=== PATIENT | female | born 1940 | race Caucasian/White ===

== ENCOUNTER 2017-09-09 11:02 | Emergency (ER) | payer MEDICARE ==
[2017-09-09] MEDS ORDERED: ALBUTEROL SULFATE 2.5 MG/0.5 ML VIAL.NEB IH ONE ×2 (11:38→11:39)
--- NOTE | 2017-09-09 11:38 | ERNOTE ---
Date of Service: 09/09/17 Time Seen by Provider: 09/09/17 11:08 Stated Complaint: COUGH Presenting Symptoms:: cough Source: patient Exam Limitations: no limitations Allergies/Adverse Reactions: Allergies enalapril [Enalapril] Allergy (Verified 09/09/17 11:29) zinc [Zinc] Allergy (Verified 09/09/17 11:29) Home Medications: HOME MEDICATIONS Aspirin [Aspirin Chewable] 81 mg PO DAILY 01/15/13 [Last Taken Unknown] Caltrate 600 2 tab PO DAILY 01/15/13 [Last Taken Unknown] Carvedilol [Coreg] 25 mg PO BID 01/15/13 [Last Taken Unknown] Furosemide [Lasix] 40 mg PO DAILY 01/15/13 [Last Taken Unknown] Insulin Aspart [Novolog] 8 unit SQ TID 01/15/13 [Last Taken Unknown] Insulin Glargine,Hum.rec.anlog [Lantus] 13 unit SQ HS 01/15/13 [Last Taken Unknown] Isosorbide Dinitrate 20 mg PO BID 01/15/13 [Last Taken Unknown] [place]-3 Fatty Acids/Fish Oil [Fish Oil 1,200 mg Softgel] 1 each PO DAILY [Last Taken Unknown] Pravastatin Sodium [Pravachol] 80 mg PO HS 01/15/13 [Last Taken Unknown] Allopurinol [Zyloprim (Allopurinol)] 100 mg PO BID 09/09/17 [Last Taken Unknown] Dabigatran Etexilate Mesylate [Pradaxa] 150 mg PO BID 09/09/17 [Last Taken Unknown] Doxycycline Monohydrate 100 mg PO BID #20 tablet 09/09/17 [Last Taken Unknown] Furosemide 20 mg PO DAILY #20 tablet 09/09/17 [Last Taken Unknown] Losartan Potassium [Cozaar] 25 mg PO DAILY 09/09/17 [Last Taken Unknown] Multivitamin [Multivitamins] 1 each PO DAILY 09/09/17 [Last Taken Unknown] Potassium Chloride [Klor-Con 10] 10 meq PO DAILY #20 tablet.er 09/09/17 [Last Taken Unknown] - History of Present Ilness Narrative: Pt. comes in with c/o cough, chest congestion, nasal congestion, and intermittent fever for three days. Pt. has a hx of heart disease, smoking, and diabetes, but denies any lung disease. Pt. denies any SOB, CP, NVD, swelling, weakness, dizziness/lightheadedness, alleviating factors, or aggravating factors. Pt. denies any prehospital treatment. Review of Systems - Review of Systems Constitutional: Present: no symptoms reported. Absent: recent illness, fever, chills, weakness, fatigue, malaise EYE: Present: no symptoms reported ENT: Present: nose congestion, nasal drainage, sore throat Respiratory: Present: cough. Absent: shortness of breath, orthopnea, wheezing Cardiology: Present: no symptoms reported Gastrointestinal/Abdominal: Present: no symptoms reported. Absent: nausea, vomiting, diarrhea, abdominal pain Genitourinary: Present: no symptoms reported Musculoskeletal: Present: no symptoms reported. Absent: back pain, joint pain Skin: Present: no symptoms reported. Absent: rash, change in hair/nails Neurological: Present: no symptoms reported. Absent: headache, dizziness/light- headedness, numbness, tingling All Other Systems: All systems neg except as marked - Patient's Past Medical History Patient History - Medical: No pertinent hx Physical Exam - Physical Exam General Appearance: Present: wd/wn, alert, no apparent distress Head Exam: Present: normal inspection, no evidence of injury Eye Exam: Normal inspection: bilateral, PERRL: bilateral, EOMI: bilateral Ears, Nose, Throat: Present: nasal congestion, sinus pain/drainage, pharyngeal erythema Neck: Present: nontender, supple, full range of motion, lymphadenopathy (R) - submandibular, lymphadenopathy (L) - submandibular Respiratory: Present: no respiratory distress, no accessory muscle use, decreased breath sounds - bases, wheezing - exp uppers. Absent: rales, rhonchi Cardiovascular/Chest: Present: regular rate, rhythm, no murmur, normal peripheral pulses Gastrointestinal/Abdominal: Present: normal bowel sounds, nontender, nondistended, soft, no organomegaly, tenderness Back Exam: Present: normal inspection Extremity Exam: Present: normal inspection, non-tender, normal range of motion, no edema Neurological Exam: Present: alert, oriented, normal mood/affect, no motor/ sensory deficits, electrical repairer II-XII nml as tested, normal cerebellar test Skin Exam: Present: warm/dry, pallor ED Progress - Date and Time Seen: Date and Time: 09/09/17 13:[address] Anna about starting pt. on doxy and lasix and he agrees with POC and asks to start pt. on 10 mq of potassium and have her follow up for labs and appointment with him - Results and Orders Patient's Lab Results:: I have reviewed the patient's lab results. Results and Orders: Abnormal Lab Results 09/09/17 09/09/17 Range/Units 12:20 12:20 RBC 4.06 L (4.2-5.4) M/mm3 Hgb 11.7 L (12.5-16.0) gm/dL Hct 36.1 L (37.0-47.0) % RDW 14.4 H (11.5-14.0) % MPV 10.4 H (6.0-9.5) fl Lymphocytes % 12.9 L (20-51) % Monocytes % 20.0 H (0.0-9) % Lymphocytes # 0.9 L (1.5-3.5) k/mm3 Monocytes # 1.4 H (0.0-1.0) k/mm3 BUN 26 H (3-23) mg/dL Est GFR (Non-Af Amer) 41 L (60-130) mL/min Random Glucose 50 L (70-110) mg/dL B-Natriuretic Peptide 1746 H (5-550) pg/mL - Vital Signs Patient's Vital Signs:: I have reviewed the patient's vital signs. - EKG EKG: other - v paced EKG read: Reviewed by me EKG Comments: CXR with interstitial edema and cardiomegaly. - X-Ray X-Ray #1 X-Ray: chest Interpretation: Reviewed by me X-ray Comments: interstitial edema - Progress/Reassessment Progress:: Improved Departure Clinical Impression: Interstitial pneumonia CHF (congestive heart failure) Qualifiers: Congestive heart failure type: unspecified congestive heart failure type Congestive heart failure chronicity: acute on chronic Qualified Code(s): I50.9 - Heart failure, unspecified Upper respiratory infection Qualifiers: URI type: acute nasopharyngitis (common cold) Qualified Code(s): J00 - Acute nasopharyngitis [common cold] - Departure Disposition: Home self-care Condition: Good Instructions: Community-Acquired Pneumonia, Adult, [id number], Heart Failure , [id number] Additional Instructions: Please follow up with Dr Anna as scheduled and get labs before you go to his office at 09/15 At 1045 Referrals: Alonso Anna MD [Primary Care Provider] - Prescriptions: Doxycycline Monohydrate 100 mg PO BID #20 tablet Furosemide 20 mg PO DAILY #20 tablet Potassium Chloride [Klor-Con 10] 10 meq PO DAILY #20 tablet.er
[2017-09-09 12:29] LABS: Hematocrit 36.1 % (37.0-47.0); Hemoglobin 11.7 gm/dL (12.5-16.0); Mean Cell Volume 88.9 fl (78-100); Mean Corpuscular Hemoglobin 28.8 pg (27-31); Mean Corpuscular Hgb Conc 32.4 g/dl (32-36); Mean Platelet Volume 10.4 fl (6.0-9.5); Neutrophil # 4.4 K/mm3 (1.3-6.0); Neutrophil % 64.6 % (42-75.0); Platelet Count 201 K/mm3 (150-450); Red Blood Count 4.06 M/mm3 (4.2-5.4); Red Cell Distribution Width 14.4 % (11.5-14.0); White Blood Count 6.7 K/mm3 (4.0-10.5)
[2017-09-09 12:48] LABS: Albumin * 3.4 gm/dl (3.4-5.0); Anion Gap 12.2 mmol/L (6.8-13.8); BUN/Creatinine Ratio 19.7 (9.0-21.6); Bilirubin, Total 0.5 mg/dL (0.0-1.1); Ca. Corrected For Albumin 9.3 mg/dL (8.4-10.2); Calcium * 9.1 mg/dL (7.9-10.9); Carbon Dioxide 27.5 mmol/L (24-32.6); Potassium 3.7 mmol/L (3.4-4.6)
[2017-09-09 12:59] VITALS: BP 109/46
[2017-09-09] MEDS ORDERED: FUROSEMIDE 40 MG TABLET PO ONE (12:59)
[2017-09-09] MEDS ORDERED: DOXYCYCLINE HYCLATE 100 MG TABLET PO ONE (13:00)
[2017-09-09] MEDS ORDERED: DOXYCYCLINE HYCLATE 100 MG TABLET ONE (13:04)
[2017-09-09] MEDS ORDERED: FUROSEMIDE 40 MG TABLET ONE (13:04)
== END 2017-09-09 13:26 | disposition home or self-care (01) ==
LOC: ER 11:02
DX: J84.9 Interstitial pulmonary disease, unspecified (principal); I50.9 Heart failure, unspecified; J00 Acute nasopharyngitis [common cold]

== ENCOUNTER 2017-09-11 08:05 | Inpatient (IN) | payer MEDICARE ==
[2017-09-11] MEDS ORDERED: ALBUTEROL SULFATE/IPRATROPIUM 3 ML NEBU IH ONE ×2 (08:49→09:19)
--- NOTE | 2017-09-11 08:56 | ERNOTE ---
Time Seen by Provider: 09/11/17 08:43 Stated Complaint: PNEUMONIA, CHF Presenting Symptoms:: cough Source: patient, family Exam Limitations: no limitations Immunizations: IMMUNIZATION HX Immunizations Up to Date Yes History of Influenza Vaccine Yes Hx Pneumococcal Vaccination Yes Allergies/Adverse Reactions: Allergies enalapril [Enalapril] Allergy (Verified 09/11/17 08:15) zinc [Zinc] Allergy (Verified 09/11/17 08:15) Home Medications: HOME MEDICATIONS Aspirin [Aspirin Chewable] 81 mg PO DAILY 01/15/13 [Last Taken Unknown] Caltrate 600 2 tab PO DAILY 01/15/13 [Last Taken Unknown] Carvedilol [Coreg] 25 mg PO BID 01/15/13 [Last Taken Unknown] Furosemide [Lasix] 40 mg PO DAILY 01/15/13 [Last Taken Unknown] Insulin Aspart [Novolog] 8 unit SQ TID 01/15/13 [Last Taken Unknown] Insulin Glargine,Hum.rec.anlog [Lantus] 13 unit SQ HS 01/15/13 [Last Taken Unknown] Isosorbide Dinitrate 20 mg PO BID 01/15/13 [Last Taken Unknown] [place]-3 Fatty Acids/Fish Oil [Fish Oil 1,200 mg Softgel] 1 each PO DAILY [Last Taken Unknown] Pravastatin Sodium [Pravachol] 80 mg PO HS 01/15/13 [Last Taken Unknown] Allopurinol [Zyloprim (Allopurinol)] 100 mg PO BID 09/09/17 [Last Taken Unknown] Dabigatran Etexilate Mesylate [Pradaxa] 150 mg PO BID 09/09/17 [Last Taken Unknown] Doxycycline Monohydrate 100 mg PO BID #20 tablet 09/09/17 [Last Taken Unknown] Furosemide 20 mg PO DAILY #20 tablet 09/09/17 [Last Taken Unknown] Losartan Potassium [Cozaar] 25 mg PO DAILY 09/09/17 [Last Taken Unknown] Multivitamin [Multivitamins] 1 each PO DAILY 09/09/17 [Last Taken Unknown] Potassium Chloride [Klor-Con 10] 10 meq PO DAILY #20 tablet.er 09/09/17 [Last Taken Unknown] - History of Present Ilness Narrative: Patient seen here 2 days ago for cough and congestion and was sent home with antibiotics and increased diuretics and has failed to improve significantly. Patient family both state that her cough is still fairly severe and she is having difficulty laying flat without worsening respirations. Timing: intermittent Severity: moderate Frequency/Possible Cause: Reports: occasional episodes Modifying Factors - Improves: Reports: nothing Modifying Factors - Worsens: Reports: activity Associated Symptoms: Reports: cough Prior Treatment: Reports: recently seen, treated by physician, currently on antibiotics Review of Systems - Review of Systems Constitutional: Present: See HPI EYE: Present: no symptoms reported ENT: Present: no symptoms reported Respiratory: Present: shortness of breath, cough Cardiology: Present: no symptoms reported Gastrointestinal/Abdominal: Present: no symptoms reported Genitourinary: Present: no symptoms reported Musculoskeletal: Present: no symptoms reported Skin: Present: no symptoms reported Neurological: Present: no symptoms reported Endocrine: Present: no symptoms reported Hematologic/Lymphatic: Present: no symptoms reported Psych: Present: no symptoms reported - Patient's Past Medical History Patient History - Medical: No pertinent hx, Diabetes Type 2, Other - gout Patient History - Cardiac/Respiratory: CHF, Hypertension, Hyperlipidemia, TIA Patient History - Cancer: Breast, Cervical, Skin Patient History - Surgical Procedures: Back Surgery, Cataracts, Hysterectomy, Pacemaker Patient History - Other: None - Social History Living Situations: home Abuse History: No History of abuse Psych History: No pertinent hx - Immunizations Immunizations Up to Date: Yes Hx Pneumococcal Vaccination: Yes History of Influenza Vaccine: Yes Physical Exam - Physical Exam General Appearance: Present: wd/wn, alert, moderate distress Head Exam: Present: normal inspection Eye Exam: Normal inspection: bilateral, PERRL: bilateral Ears, Nose, Throat: Present: normal ENT inspection, H, normal pharynx Neck: Present: normal inspection, nontender Respiratory: Present: no accessory muscle use, chest nontender, respiratory distress - moderate, other - course breath sounds Cardiovascular/Chest: Present: regular rate, rhythm, no murmur, normal peripheral pulses Gastrointestinal/Abdominal: Present: normal bowel sounds, nontender, nondistended, soft, no organomegaly Rectal Exam: Present: deferred Back Exam: Present: normal inspection, normal range of motion Extremity Exam: Present: normal inspection, non-tender, no edema, normal range of motion Neurological Exam: Present: alert, oriented, normal mood/affect Skin Exam: Present: normal color, warm/dry Lymphatic Exam: Present: no adenopathy ED Progress - Results and Orders Patient's Lab Results:: I have reviewed the patient's lab results. - Vital Signs Patient's Vital Signs:: I have reviewed the patient's vital signs. Vital Signs: Vital Signs 09/11/17 08:10 Temperature 37.2 C Pulse Rate 74 Respiratory 14 Rate Blood Pressure 141/56 O2 Sat by Pulse 90 Oximetry - EKG EKG: other EKG read: Interp. by me - paced rhythm - X-Ray X-Ray #1 X-Ray: chest Interpretation: Reviewed by me - Progress/Reassessment Chief Complaint: Upper Respiratory Symptoms Plan - Plan Plan: Patient has failed outpatient therapy and will be admitted to the hospital for IV Lasix. Departure Clinical Impression: CHF (congestive heart failure) Qualifiers: Congestive heart failure type: unspecified congestive heart failure type Congestive heart failure chronicity: acute on chronic Qualified Code(s): I50.9 - Heart failure, unspecified - Departure Disposition: [facility] Condition: Fair
[2017-09-11] MEDS ORDERED: HYDROcodone/CHLORPHEN P-STIREX 5 ML UDC PO ONE (09:00)
[2017-09-11 09:13] LABS: Hemoglobin 11.8 gm/dL (12.5-16.0); Mean Cell Volume 89.2 fl (78-100); Mean Corpuscular Hemoglobin 28.4 pg (27-31); Mean Corpuscular Hgb Conc 31.9 g/dl (32-36); Mean Platelet Volume 10.1 fl (6.0-9.5); Neutrophil # 7.8 K/mm3 (1.3-6.0); Neutrophil % 77.1 % (42-75.0); Platelet Count 169 K/mm3 (150-450); Red Blood Count 4.15 M/mm3 (4.2-5.4); Red Cell Distribution Width 14.4 % (11.5-14.0); White Blood Count 10.1 K/mm3 (4.0-10.5)
[2017-09-11 09:32] LABS: Troponin I 0.057 ng/ml (0.00-0.10)
[2017-09-11 09:34] LABS: Anion Gap 13.7 mmol/L (6.8-13.8); BUN/Creatinine Ratio 26.9 (9.0-21.6); Calcium * 8.4 mg/dL (7.9-10.9); Carbon Dioxide 26.5 mmol/L (24-32.6); Estimated Creat Clear 30.4; Potassium 4.2 mmol/L (3.4-4.6)
[2017-09-11] MEDS ORDERED: FUROSEMIDE 10 MG/ML VIAL IV ONE ×2 (10:12→11:00)
--- NOTE | 2017-09-11 11:16 | HP ---
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 Five days [employer], she started having upper respiratory signs and symptoms . She was having nasal congestion, cough productive of yellowish phlegm, mixed with specks of blood and epistaxis. She also started having SOB and some wheezing. She went to our ER were CXR showed pulmonary congestion and was given lasix and doxycycline for acute nasopharyngitis. Her SOB and cough did not improve and she became more orthopneic and so she went back to the ER . She was then admitted for Acute exacerbation of congestive heart failure. Her CXR did not show pneumonia except for cardiomegaly and pulmonary congestion. - Patient's Past Medical History Patient History - Medical: No pertinent hx, Diabetes Type 2, Other - gout Patient History - Cardiac/Respiratory: CHF, Hypertension, Hyperlipidemia, TIA Patient History - Cancer: Breast, Cervical, Skin Patient History - Surgical Procedures: Back Surgery, Cataracts, Hysterectomy, Pacemaker Patient History - Other: None - Family History Mother Family History - Medical: Diabetes Type 1 Family History - Cancer: Breast Father Family History - Cancer: Prostate - Social History Living Situations: home Abuse History: No History of abuse Psych History: No pertinent hx - Immunizations Immunizations Up to Date: Yes Hx Pneumococcal Vaccination: Yes History of Influenza Vaccine: Yes Review Of Systems (GEN) - Review of Systems Generalized/Overall Review: Present: Weakness Respiratory: Present: Cough, Shortness of Breath, Orthopnea, Wheezing Cardiac: Absent: Chest Pain, Edema, Palpitations Abdominal: Absent: Nausea, Vomiting Genitourinary: Absent: Urgency, Frequency Musculoskeletal: Present: Joint Pain Immunizations: IMMUNIZATION HX Immunizations Up to Date Yes History of Influenza Vaccine Yes Hx Pneumococcal Vaccination Yes Allergies/Adverse Reactions: Allergies Allergy/AdvReac Type Severity Reaction Status Date / Time enalapril [Enalapril] Allergy Verified 09/11/17 08:15 zinc [Zinc] Allergy Verified 09/11/17 08:15 Home Medications: HOME MEDICATIONS Aspirin [Aspirin Chewable] 81 mg PO DAILY 01/15/13 [Last Taken 09/10/17] Calcium Carbonate/Vitamin D3 [Caltrate-600 with Vit D Tab] 2 each PO DAILY 01/15 [Last Taken 09/10/17] Carvedilol [Coreg] 25 mg PO BID 01/15/13 [Last Taken 09/10/17] Furosemide [Lasix] 40 mg PO DAILY 01/15/13 [Last Taken 09/10/17] Insulin Glargine,Hum.rec.anlog [Lantus] 68 unit SQ HS 01/15/13 [Last Taken Unknown] Isosorbide Dinitrate 20 mg PO BID 01/15/13 [Last Taken 09/10/17] [place]-3 Fatty Acids/Fish Oil [Fish Oil 1,200 mg Softgel] 1 each PO DAILY [Last Taken 09/10/17] Pravastatin Sodium [Pravachol] 80 mg PO HS 01/15/13 [Last Taken 09/10/17] Allopurinol [Zyloprim (Allopurinol)] 100 mg PO BID 09/09/17 [Last Taken 09/10/17 ] Dabigatran Etexilate Mesylate [Pradaxa] 150 mg PO BID 09/09/17 [Last Taken 09/10] Doxycycline Monohydrate 100 mg PO BID #20 tablet 09/09/17 [Last Taken 09/10/17] Furosemide 20 mg PO DAILY #20 tablet 09/09/17 [Last Taken 09/10/17] Losartan Potassium [Cozaar] 25 mg PO DAILY 09/09/17 [Last Taken 09/10/17] Multivitamin [Multivitamins] 1 each PO DAILY 09/09/17 [Last Taken 09/10/17] Potassium Chloride [Klor-Con 10] 10 meq PO DAILY #20 tablet.er 09/09/17 [Last Taken Unknown] Insulin Lispro [Humalog] 20 units SQ AC 09/11/17 [Last Taken 09/10/17] Exam - Exam Vital Signs: Vital Signs - Last Taken Temp 37.2 C 09/11/17 08:10 Pulse 84 09/11/17 10:22 Resp 20 09/11/17 10:22 BP 125/61 09/11/17 10:22 Pulse Ox 94 09/11/17 10:22 Constitutional: Present: Oriented x3, Cooperative, Moderate distress ENT Exam: Present: hearing grossly normal Eye Exam: bilateral eye: normal inspection, PERRL, EOMI Neck: Present: supple Respiratory: Present: decreased breath sounds, rales, wheezing Cardiovascular/Chest: Present: regular rate, rhythm, no JVD, no murmur Abdomen: Present: Normal bowel sounds, soft, nontender, nondistended Extremity: Present: no calf tenderness, pedal edema Diagnostic Studies: Laboratory Results WBC 10.1 K/mm3 (4.0-10.5) D 09/11/17 09:06 RBC 4.15 M/mm3 (4.2-5.4) L 09/11/17 09:06 Hgb 11.8 gm/dL (12.5-16.0) L 09/11/17 09:06 Hct 37.0 % (37.0-47.0) 09/11/17 09:06 MCV 89.2 fl (78-100) 09/11/17 09:06 MCH 28.4 pg (27-31) 09/11/17 09:06 MCHC 31.9 g/dl (32-36) L 09/11/17 09:06 RDW 14.4 % (11.5-14.0) H 09/11/17 09:06 Plt Count 169 K/mm3 (150-450) 09/11/17 09:06 MPV 10.1 fl (6.0-9.5) H 09/11/17 09:06 Immature Gran % (Auto) 0.60 % (0.001-0.429) H 09/11/17 09:06 Immature Gran # (Auto) 0.06 K/mm3 (0.000-0.0310) H 09/11/17 09:06 Neutrophils % 77.1 % (42-75.0) H 09/11/17 09:06 Lymphocytes % 7.7 % (20-51) L 09/11/17 09:06 Monocytes % 14.0 % (0.0-9) H 09/11/17 09:06 Eosinophils % 0.1 % (0.0-3.0) 09/11/17 09:06 Basophils % 0.5 % (0.0-1.0) 09/11/17 09:06 Nucleated RBC % 0.0 k/mm3 (0-1) 09/11/17 09:06 Neutrophils # 7.8 K/mm3 (1.3-6.0) H 09/11/17 09:06 Lymphocytes # 0.8 k/mm3 (1.5-3.5) L 09/11/17 09:06 Monocytes # 1.4 k/mm3 (0.0-1.0) H 09/11/17 09:06 Eosinophils # 0.0 k/mm3 (0.0-0.7) 09/11/17 09:06 Absolute Basophils 0.1 k/mm3 (0.0-0.1) 09/11/17 09:06 pCO2 35.4 mmHg (32.0-45.0) 09/11/17 09:06 pO2 80.3 mmHg (83.0-108.0) L 09/11/17 09:06 HCO3 21.7 mmol/L (21.0-28.0) 09/11/17 09:06 Total CO2 22.8 mmol/L (19.0-24.0) 09/11/17 09:06 Base Excess -2.5 mmol/L (-2.0-3.0) L 09/11/17 09:06 ABG pH 7.41 (7.35-7.45) 09/11/17 09:06 ABG O2 Sat (Measured) 96.0 % (94.0-98.0) 09/11/17 09:06 Sodium 133 mmol/L (132-142) 09/11/17 09:06 Plasma Sodium 134 mmol/L (130-142) 09/11/17 09:06 Potassium 4.2 mmol/L (3.4-4.6) 09/11/17 09:06 Chloride 97 mmol/L (97-106) 09/11/17 09:06 Carbon Dioxide 26.5 mmol/L (24-32.6) 09/11/17 09:06 Anion Gap 13.7 mmol/L (6.8-13.8) 09/11/17 09:06 BUN 39 mg/dL (3-23) H 09/11/17 09:06 Creatinine 1.45 mg/dL (0.4-1.4) H 09/11/17 09:06 Est GFR (Non-Af Amer) 37 mL/min (60-130) L 09/11/17 09:06 BUN/Creatinine Ratio 26.9 (9.0-21.6) H 09/11/17 09:06 Random Glucose 175 mg/dL (70-110) H D 09/11/17 09:06 Calcium 8.4 mg/dL (7.9-10.9) 09/11/17 09:06 Magnesium 2.0 mg/dL (1.2-2.8) 09/11/17 09:06 Troponin I 0.057 ng/ml (0.00-0.10) 09/11/17 09:06 B-Natriuretic Peptide 1960 pg/mL (5-550) H 09/11/17 09:06 Assessment/Plan - Assessment/Plan (1) CHF (congestive heart failure) Assessment: acute on chronic, likely combined systolic and diastolic. will get an Echo. Continue with IV diuresis. Problem: Chronic Qualifiers: Congestive heart failure type: unspecified congestive heart failure type Congestive heart failure chronicity: acute on chronic Qualified Code(s): I50.9 - Heart failure, unspecified (2) Acute bronchitis Assessment: r/o beginning Pneumonia. will start her on IV antibiotics and breathing treatments and IV solumedrol. She does admit that in the past she used to get acute bronchitis twice a year. Problem: Acute (3) Hypertension Assessment: continue with home medications Problem: Chronic Qualifiers: Hypertension type: essential hypertension Qualified Code(s): I10 - Essential (primary) hypertension (4) HLD (hyperlipidemia) Problem: Chronic (5) CAD (coronary artery disease) Problem: Chronic (6) Pacemaker Problem: Chronic
[2017-09-11] MEDS ORDERED: AZITHROMYCIN 250 MG TABLET PO ONE (12:23)
[2017-09-11] MEDS ORDERED: ALBUTEROL SULFATE 2.5 MG/0.5 ML VIAL.NEB IH PRN (12:51)
[2017-09-11] MEDS: HYDROcodone/CHLORPHEN P-STIREX 5 ML UDC PO PRN (13:48)
[2017-09-11] MEDS: WATER IV SCH ×4 (13:53→19:12)
[2017-09-11] MEDS: HYDROCORTISONE SOD SUCCINATE IV SCH ×4 (13:53→19:12)
[2017-09-11] MEDS: DEXTROSE 5% IV SCH ×4 (13:53→19:12)
[2017-09-11] MEDS: POTASSIUM CHLORIDE 10 MEQ TABLET.SA PO SCH ×2 (14:09→17:21)
[2017-09-11] MEDS ORDERED: ALBUTEROL SULFATE/IPRATROPIUM 3 ML NEBU IH PRN (19:49)
[2017-09-11] MEDS: ROSUVASTATIN CALCIUM 10 MG TABLET PO SCH (21:22)
[2017-09-11] MEDS: DABIGATRAN ETEXILATE MESYLATE 150 MG CAPSULE PO SCH (21:23)
[2017-09-11] MEDS: ISOSORBIDE DINITRATE 10 MG TABLET PO SCH (21:24)
[2017-09-11] MEDS: ALLOPURINOL 100 MG TABLET PO SCH (21:25)
[2017-09-11] MEDS: FUROSEMIDE 10 MG/ML VIAL IV SCH (21:26)
[2017-09-11] MEDS: CARVEDILOL 25 MG TABLET PO SCH (21:26)
[2017-09-12] MEDS: HYDROCORTISONE SOD SUCCINATE IV SCH ×4 (00:42→06:36)
[2017-09-12] MEDS: WATER IV SCH ×4 (00:42→06:36)
[2017-09-12] MEDS: DEXTROSE 5% IV SCH ×4 (00:42→06:36)
[2017-09-12] MEDS: HYDROcodone/CHLORPHEN P-STIREX 5 ML UDC PO PRN ×2 (01:04→23:34)
[2017-09-12 05:44] LABS: Hematocrit 36.7 % (37.0-47.0); Hemoglobin 11.7 gm/dL (12.5-16.0); Mean Cell Volume 89.5 fl (78-100); Mean Corpuscular Hemoglobin 28.5 pg (27-31); Mean Corpuscular Hgb Conc 31.9 g/dl (32-36); Mean Platelet Volume 10.4 fl (6.0-9.5); Neutrophil # 5.8 K/mm3 (1.3-6.0); Neutrophil % 75.7 % (42-75.0); Platelet Count 173 K/mm3 (150-450); Red Cell Distribution Width 14.3 % (11.5-14.0); White Blood Count 7.6 K/mm3 (4.0-10.5)
[2017-09-12 06:08] LABS: BUN/Creatinine Ratio 30.5 (9.0-21.6); Calcium * 8.1 mg/dL (7.9-10.9); Carbon Dioxide 26.9 mmol/L (24-32.6); Estimated Creat Clear 33.7; Potassium 3.9 mmol/L (3.4-4.6)
[2017-09-12] MEDS: LOSARTAN POTASSIUM 50 MG TABLET PO SCH (08:09)
[2017-09-12] MEDS: POTASSIUM CHLORIDE 10 MEQ TABLET.SA PO SCH ×2 (08:09→16:39)
[2017-09-12] MEDS: ASPIRIN 81 MG TAB.CHEW PO SCH (08:09)
[2017-09-12] MEDS: CARVEDILOL 25 MG TABLET PO SCH ×2 (08:09→20:18)
[2017-09-12] MEDS: DABIGATRAN ETEXILATE MESYLATE 150 MG CAPSULE PO SCH ×2 (08:10→20:16)
[2017-09-12] MEDS: ISOSORBIDE DINITRATE 10 MG TABLET PO SCH ×2 (08:10→20:20)
[2017-09-12] MEDS: CALCIUM CARBONATE 500 MG TAB.CHEW PO SCH (08:11)
[2017-09-12] MEDS: ALLOPURINOL 100 MG TABLET PO SCH ×2 (08:11→20:24)
[2017-09-12] MEDS: FUROSEMIDE 10 MG/ML VIAL IV SCH ×2 (08:11→20:21)
[2017-09-12] MEDS ORDERED: predniSONE 20 MG TABLET PO SCH (09:00)
[2017-09-12] MEDS ORDERED: ALBUTEROL SULFATE/IPRATROPIUM 3 ML NEBU IH SCH (11:15)
[2017-09-12] MEDS: METHYLPREDNISOLONE SOD SUCC 60 MG in WATER FOR INJ.,BACTERIOSTATIC 0 ML IV SCH ×3 (11:55→23:29)
[2017-09-12] MEDS: INSULIN LISPRO 100 UNITS/ML VIAL SC SCH ×3 (11:55→16:40)
[2017-09-12] MEDS: ALBUTEROL SULFATE 2.5 MG/0.5 ML VIAL.NEB IH PRN ×2 (13:28→23:33)
[2017-09-12] MEDS: AZITHROMYCIN 250 MG TABLET PO SCH (14:20)
[2017-09-12] MEDS: ALBUTEROL SULFATE/IPRATROPIUM 3 ML NEBU IH SCH ×2 (15:59→19:48)
--- NOTE | 2017-09-12 18:52 | PN ---
Subjective - Date and Time Seen Date: 09/12/17 Time: 10:10 Subjective Narrative: Patient seen and examined at bedside. No acute issues overnight. Patient states that she continues to feel unwell. She admits that her cough is quite bothersome and she doesn't seem to be getting much sleep. Objective - Review of Systems Generalized/Overall Review: Reports: Weakness, Fatigue EENTM: Reports: No Symptoms Reported Respiratory: Reports: Cough, Shortness of Breath, Wheezing Cardiac: Reports: No Symptoms Reported Abdominal: Reports: No Symptoms Reported Genitourinary Symptoms: Reports: No Symptoms Reported Musculoskeletal Complaints: Reports: No Symptoms Reported Neurological: Reports: No Symptoms Reported Skin: Reports: No Symptoms Reported Endocrine: Reports: No Symptoms Reported Misc: All systems neg except as marked - Vitals Vitals: Last Vital Signs Temp 36.6 C 09/12/17 18:34 Pulse 79 09/12/17 18:34 Resp 18 09/12/17 18:34 BP 123/60 09/12/17 18:34 Pulse Ox 97 09/12/17 18:34 - Exam Constitutional: Present: Alert, Oriented x3, Cooperative, Well developed, Well nourished ENT Exam: Present: moist mucous membranes Respiratory: Present: other - Profound diffuse rhonchi bilaterally Cardiovascular/Chest: Present: no edema, other - Difficult to thoroughly assess heart sounds secondary to prominent lung sounds Abdomen: Present: soft, nontender, nondistended Extremity: Present: normal inspection Skin Exam: Present: warm/dry Neurologic: Present: alert, normal mood/affect, oriented x 3 Appearance: Present: appropriate appearance, appropriate insight, neat, no memory impairment Eye contact: Present: cooperative, good eye contact, normal speech Thoughts: Present: normal thought pattern, no apparent hallucination Assessment/Plan Plan Narrative: Continue IV antibiotics with Rocephin and azithromycin. Start IV steroids. Monitor for clinical improvement. If no improvement over the next 24-48 hours, consider antibiotic adjustment. - Problems/Diagnosis (1) Pneumonitis Problem: Acute (2) Pneumonia Problem: Acute Qualifiers: Pneumonia type: due to unspecified organism Laterality: bilateral (3) Pulmonary hypertension Problem: Acute
[2017-09-12] MEDS: ROSUVASTATIN CALCIUM 10 MG TABLET PO SCH (20:20)
[2017-09-12] MEDS ORDERED: INSULIN GLARGINE,HUM.REC.ANLOG 100 UNITS/ML VIAL SC SCH (21:00)
[2017-09-13] MEDS: ALBUTEROL SULFATE 2.5 MG/0.5 ML VIAL.NEB IH PRN ×2 (04:37→22:19)
[2017-09-13] MEDS: METHYLPREDNISOLONE SOD SUCC 60 MG in WATER FOR INJ.,BACTERIOSTATIC 0 ML IV SCH ×4 (05:01→23:29)
[2017-09-13 06:05] LABS: Hematocrit 35.9 % (37.0-47.0); Hemoglobin 11.5 gm/dL (12.5-16.0); Mean Corpuscular Hemoglobin 28.2 pg (27-31); Mean Platelet Volume 10.7 fl (6.0-9.5); Neutrophil % 88.3 % (42-75.0); Platelet Count 202 K/mm3 (150-450); Red Blood Count 4.08 M/mm3 (4.2-5.4); White Blood Count 12.5 K/mm3 (4.0-10.5)
[2017-09-13] MEDS: ALBUTEROL SULFATE/IPRATROPIUM 3 ML NEBU IH SCH ×4 (06:13→18:10)
[2017-09-13 06:25] LABS: Anion Gap 16.4 mmol/L (6.8-13.8); BUN/Creatinine Ratio 37.2 (9.0-21.6); Carbon Dioxide 25.8 mmol/L (24-32.6); Estimated Creat Clear 32.2; Potassium 4.2 mmol/L (3.4-4.6)
[2017-09-13] MEDS: INSULIN LISPRO 100 UNITS/ML VIAL SC SCH ×6 (06:51→16:48)
[2017-09-13] MEDS: CARVEDILOL 25 MG TABLET PO SCH ×2 (08:19→20:13)
[2017-09-13] MEDS: ASPIRIN 81 MG TAB.CHEW PO SCH (08:19)
[2017-09-13] MEDS: POTASSIUM CHLORIDE 10 MEQ TABLET.SA PO SCH ×2 (08:20→16:49)
[2017-09-13] MEDS: ISOSORBIDE DINITRATE 10 MG TABLET PO SCH ×2 (08:20→20:15)
[2017-09-13] MEDS: FUROSEMIDE 10 MG/ML VIAL IV SCH ×2 (08:20→20:19)
[2017-09-13] MEDS: LOSARTAN POTASSIUM 50 MG TABLET PO SCH (08:20)
[2017-09-13] MEDS: DABIGATRAN ETEXILATE MESYLATE 150 MG CAPSULE PO SCH ×2 (08:20→20:14)
[2017-09-13] MEDS: ALLOPURINOL 100 MG TABLET PO SCH ×2 (08:21→20:16)
[2017-09-13] MEDS: CALCIUM CARBONATE 500 MG TAB.CHEW PO SCH (08:21)
[2017-09-13] MEDS: AZITHROMYCIN 250 MG TABLET PO SCH (14:02)
[2017-09-13] MEDS: ROSUVASTATIN CALCIUM 10 MG TABLET PO SCH (20:13)
--- NOTE | 2017-09-13 20:15 | PN ---
Subjective - Date and Time Seen Date: 09/13/17 Time: 08:10 Subjective Narrative: Patient seen and examined at bedside. No acute issues overnight. Patient states that she continues to feel unwell but admits that maybe she is a bit better than yesterday. Objective - Review of Systems Generalized/Overall Review: Reports: Weakness, Fatigue EENTM: Reports: No Symptoms Reported Respiratory: Reports: Cough, Shortness of Breath, Wheezing Cardiac: Reports: No Symptoms Reported Abdominal: Reports: No Symptoms Reported Genitourinary Symptoms: Reports: No Symptoms Reported Musculoskeletal Complaints: Reports: No Symptoms Reported Neurological: Reports: No Symptoms Reported Skin: Reports: No Symptoms Reported Endocrine: Reports: No Symptoms Reported Misc: All systems neg except as marked - Vitals Vitals: Last Vital Signs Temp 36.5 C 09/13/17 18:40 Pulse 85 09/13/17 18:40 Resp 18 09/13/17 18:40 BP 137/52 09/13/17 18:40 Pulse Ox 93 09/13/17 18:40 - Abnormal Lab Findings Abnormal Lab Findings: Abnormal Lab Results 09/13/17 09/13/17 Range/Units 05:35 05:35 WBC 12.5 H D (4.0-10.5) K/mm3 RBC 4.08 L (4.2-5.4) M/mm3 Hgb 11.5 L (12.5-16.0) gm/dL Hct 35.9 L (37.0-47.0) % MPV 10.7 H (6.0-9.5) fl Immature Gran % (Auto) 0.60 H (0.001-0.429) % Immature Gran # (Auto) 0.08 H (0.000-0.0310) K/mm3 Neutrophils % 88.3 H (42-75.0) % Lymphocytes % 7.5 L (20-51) % Neutrophils # 11.0 H (1.3-6.0) K/mm3 Lymphocytes # 0.9 L (1.5-3.5) k/mm3 Anion Gap 16.4 H (6.8-13.8) mmol/L BUN 51 H (3-23) mg/dL Est GFR (Non-Af Amer) 40 L (60-130) mL/min BUN/Creatinine Ratio 37.2 H (9.0-21.6) Random Glucose 364 H D (70-110) mg/dL B-Natriuretic Peptide 2627 H (5-550) pg/mL - Exam Constitutional: Present: Alert, Oriented x3, Cooperative, Well developed, Well nourished, No distress ENT Exam: Present: moist mucous membranes Respiratory: Present: other - Profound diffuse rhonchi bilaterally Cardiovascular/Chest: Present: other - Difficult to thoroughly assess heart sounds secondary to prominent lung sounds Abdomen: Present: soft, nontender, nondistended Extremity: Present: normal inspection Skin Exam: Present: warm/dry Neurologic: Present: alert, normal mood/affect, oriented x 3 Appearance: Present: appropriate appearance, appropriate insight, neat, no memory impairment Eye contact: Present: cooperative, good eye contact Thoughts: Present: normal thought pattern, no apparent hallucination Assessment/Plan Plan Narrative: Continue IV antibiotics and IV steroids and continue to monitor for improvement. If no improvement over the next 24-48 hours, consider antibiotic adjustment and/or Pulmonology consult. - Problems/Diagnosis (1) Pneumonia Problem: Acute Qualifiers: Pneumonia type: due to unspecified organism Laterality: bilateral (2) Pneumonitis Problem: Acute (3) Pulmonary hypertension Problem: Acute
[2017-09-13] MEDS ORDERED: INSULIN GLARGINE,HUM.REC.ANLOG 100 UNITS/ML VIAL SC SCH (20:17)
[2017-09-13] MEDS ORDERED: INSULIN LISPRO 100 UNITS/ML VIAL SC SCH (20:18)
[2017-09-13] MEDS: HYDROcodone/CHLORPHEN P-STIREX 5 ML UDC PO PRN (23:35)
[2017-09-14] MEDS: METHYLPREDNISOLONE SOD SUCC 60 MG in WATER FOR INJ.,BACTERIOSTATIC 0 ML IV SCH ×4 (05:02→22:48)
[2017-09-14 05:56] LABS: Hematocrit 34.7 % (37.0-47.0); Hemoglobin 11.5 gm/dL (12.5-16.0); Mean Cell Volume 86.5 fl (78-100); Mean Corpuscular Hemoglobin 28.7 pg (27-31); Mean Corpuscular Hgb Conc 33.1 g/dl (32-36); Mean Platelet Volume 10.5 fl (6.0-9.5); Platelet Count 233 K/mm3 (150-450); Red Blood Count 4.01 M/mm3 (4.2-5.4); White Blood Count 17.4 K/mm3 (4.0-10.5)
[2017-09-14 06:00] LABS: Total Cells Counted 100
[2017-09-14] MEDS: ALBUTEROL SULFATE/IPRATROPIUM 3 ML NEBU IH SCH ×4 (06:00→18:05)
[2017-09-14 06:05] LABS: BUN/Creatinine Ratio 40.5 (9.0-21.6); Calcium * 8.1 mg/dL (7.9-10.9); Carbon Dioxide 27.2 mmol/L (24-32.6); Estimated Creat Clear 29.8; Potassium 4.2 mmol/L (3.4-4.6)
[2017-09-14 06:07] LABS: Atypical (Reactive) Lymph 2 % (0-2); Band 3 % (0-2.0); Lymphocyte 8 % (20-51); Monocyte 2 % (0-9); Neutrophil 85 % (42-75); Neutrophil # 14.8 K/mm3 (1.3-6.0); Toxic Granulation Trace
[2017-09-14 06:08] LABS: Platelet Estimate Normal (NORMAL)
[2017-09-14] MEDS: INSULIN LISPRO 100 UNITS/ML VIAL SC SCH ×4 (07:28→17:20)
[2017-09-14] MEDS ORDERED: CEFEPIME HCL 1 GM in DEXTROSE 5 % IN WATER 100 ML IV SCH ×2 (08:00)
[2017-09-14] MEDS ORDERED: CEFEPIME HCL 1 GM in NORMAL SALINE 100 ML IV SCH (08:15)
--- NOTE | 2017-09-14 08:19 | PN ---
Subjective - Date and Time Seen Date: 09/14/17 Time: 08:06 Subjective Narrative: Patient valery she is clinically doing better- no longer SOB at rest except for exertion. She is still wheezy and coughing. Objective - Review of Systems Generalized/Overall Review: Reports: Weakness. Denies: Chills, Fever Respiratory: Reports: Cough, Shortness of Breath, Wheezing Cardiac: Denies: Chest Pain, Edema, Palpitations Abdominal: Denies: Nausea, Vomiting Genitourinary Symptoms: Denies: Urgency, Frequency Musculoskeletal Complaints: Reports: Joint Pain - Vitals Vitals: Last Vital Signs Temp 36.8 C 09/14/17 06:34 Pulse 84 09/14/17 06:34 Resp 20 09/14/17 06:34 BP 132/59 09/14/17 06:34 Pulse Ox 96 09/14/17 06:34 - Abnormal Lab Findings Abnormal Lab Findings: Abnormal Lab Results 09/14/17 09/14/17 Range/Units 05:52 05:52 WBC 17.4 H D (4.0-10.5) K/mm3 RBC 4.01 L (4.2-5.4) M/mm3 Hgb 11.5 L (12.5-16.0) gm/dL Hct 34.7 L (37.0-47.0) % MPV 10.5 H (6.0-9.5) fl Neutrophils % (Manual) 85 H (42-75) % Band Neuts % (Manual) 3 H (0-2.0) % Lymphocytes % (Manual) 8 L (20-51) % Neutrophils # (Manual) 14.8 H (1.3-6.0) K/mm3 Lymphocytes # (Manual) 1.4 L (1.5-3.5) k/mm3 BUN 60 H (3-23) mg/dL Creatinine 1.48 H (0.4-1.4) mg/dL Est GFR (Non-Af Amer) 36 L (60-130) mL/min BUN/Creatinine Ratio 40.5 H (9.0-21.6) Random Glucose 374 H (70-110) mg/dL - Exam Constitutional: Present: Alert, Oriented x3, Cooperative Respiratory: Present: decreased breath sounds, crackles, rhonchi, wheezing Cardiovascular/Chest: Present: regular rate, rhythm, no JVD, no murmur Abdomen: Present: Normal bowel sounds, soft, nontender, nondistended Extremity: Present: no pedal edema, no calf tenderness Assessment/Plan - Problems/Diagnosis (1) Leukocytosis Problem: Acute Qualifiers: Leukocytosis type: bandemia Qualified Code(s): D72.825 - Bandemia Narrative: likely due to Steroids but she has bands and will change her antibiotic to Cefepime for pseudomonas coverage as well. Continue with Azithromycin. (2) Pneumonia Problem: Acute Qualifiers: Pneumonia type: due to unspecified organism Laterality: bilateral Narrative: CTS shows opacities in RML/RUL/b/l bases- likely infection. Will change IV Rocephin to Cefepime. WBC up and although it could be due to her Steroids , she does show bands. (3) CHF (congestive heart failure) Problem: Chronic Qualifiers: Congestive heart failure type: unspecified congestive heart failure type Congestive heart failure chronicity: acute on chronic Qualified Code(s): I50.9 - Heart failure, unspecified Narrative: combined systolic amd diastolic. continue with diuretics/Coreg/ARB.. (4) Acute bronchitis Problem: Acute Narrative: with pneumonia. still sound coarse/crackly. will continue with IV solumedrol and breathing treatments, will add mucomyst with nebs . if not better consider bronchosscopy (5) Pulmonary hypertension Problem: Acute Narrative: moderate to severe on ECHO. Classification?- CTA ruled out P.E. likely PAH II vs III. continue with diuresis and pulmonary treatment. (6) Hypertension Problem: Chronic Qualifiers: Hypertension type: essential hypertension Qualified Code(s): I10 - Essential (primary) hypertension (7) HLD (hyperlipidemia) Problem: Chronic (8) CAD (coronary artery disease) Problem: Chronic (9) Pacemaker Problem: Chronic (10) Diabetes mellitus type 2 in nonobese Problem: Acute Narrative: elevated BS due to steroids and infection.
[2017-09-14] MEDS ORDERED: INSULIN GLARGINE,HUM.REC.ANLOG 100 UNITS/ML VIAL SC SCH (08:22)
[2017-09-14] MEDS: CARVEDILOL 25 MG TABLET PO SCH ×2 (08:30→20:46)
[2017-09-14] MEDS: ASPIRIN 81 MG TAB.CHEW PO SCH (08:30)
[2017-09-14] MEDS: POTASSIUM CHLORIDE 10 MEQ TABLET.SA PO SCH ×2 (08:31→16:35)
[2017-09-14] MEDS: FUROSEMIDE 10 MG/ML VIAL IV SCH ×2 (08:31→20:47)
[2017-09-14] MEDS: LOSARTAN POTASSIUM 50 MG TABLET PO SCH (08:31)
[2017-09-14] MEDS: CALCIUM CARBONATE 500 MG TAB.CHEW PO SCH (08:32)
[2017-09-14] MEDS: ALLOPURINOL 100 MG TABLET PO SCH ×2 (08:32→20:47)
[2017-09-14] MEDS: DABIGATRAN ETEXILATE MESYLATE 150 MG CAPSULE PO SCH ×2 (08:32→20:46)
[2017-09-14] MEDS: ISOSORBIDE DINITRATE 10 MG TABLET PO SCH ×2 (08:32→20:46)
[2017-09-14] MEDS: ACETYLCYSTEINE 100 MG/ML VIAL IH SCH ×3 (10:08→18:05)
--- NOTE | 2017-09-14 12:46 | ECHO ---
This report is available in the EMR
[2017-09-14] MEDS: AZITHROMYCIN 250 MG TABLET PO SCH (13:49)
[2017-09-14] MEDS ORDERED: BUDESONIDE 0.5 MG/2 ML VIAL.NEB IH ONE (18:15)
[2017-09-14] MEDS: ROSUVASTATIN CALCIUM 10 MG TABLET PO SCH (20:46)
[2017-09-14] MEDS: HYDROcodone/CHLORPHEN P-STIREX 5 ML UDC PO PRN (22:56)
[2017-09-15] MEDS: METHYLPREDNISOLONE SOD SUCC 60 MG in WATER FOR INJ.,BACTERIOSTATIC 0 ML IV SCH (04:42)
[2017-09-15 05:39] LABS: Hemoglobin 11.2 gm/dL (12.5-16.0); Mean Corpuscular Hemoglobin 28.6 pg (27-31); Mean Corpuscular Hgb Conc 32.9 g/dl (32-36); Mean Platelet Volume 10.4 fl (6.0-9.5); Platelet Count 247 K/mm3 (150-450); Red Blood Count 3.91 M/mm3 (4.2-5.4); Red Cell Distribution Width 13.9 % (11.5-14.0); White Blood Count 18.3 K/mm3 (4.0-10.5)
[2017-09-15 05:44] LABS: Total Cells Counted 100
[2017-09-15 05:55] LABS: Anion Gap 11.3 mmol/L (6.8-13.8); BUN/Creatinine Ratio 39.9 (9.0-21.6); Calcium * 8.1 mg/dL (7.9-10.9); Carbon Dioxide 27.7 mmol/L (24-32.6); Estimated Creat Clear 30.8
[2017-09-15] MEDS: ALBUTEROL SULFATE/IPRATROPIUM 3 ML NEBU IH SCH ×4 (06:12→17:59)
[2017-09-15] MEDS: ACETYLCYSTEINE 100 MG/ML VIAL IH SCH ×4 (06:13→17:59)
[2017-09-15 07:12] LABS: Atypical (Reactive) Lymph 1 % (0-2); Band 1 % (0-2.0); Lymphocyte 7 % (20-51); Monocyte 1 % (0-9); Neutrophil 90 % (42-75); Neutrophil # 16.5 K/mm3 (1.3-6.0)
[2017-09-15 07:13] LABS: Platelet Estimate Normal (NORMAL); RBC Morphology Normal (NORMAL)
[2017-09-15] MEDS: INSULIN LISPRO 100 UNITS/ML VIAL SC SCH ×3 (07:23→16:54)
--- NOTE | 2017-09-15 07:44 | PN ---
Subjective - Date and Time Seen Date: 09/15/17 Time: 07:41 Subjective Narrative: Patient says she is very much better. Had walked the halls w/o O2. Objective - Review of Systems Generalized/Overall Review: Denies: Chills, Fever Respiratory: Reports: Cough, Shortness of Breath, Wheezing Cardiac: Denies: Chest Pain, Palpitations Abdominal: Denies: Nausea, Vomiting Genitourinary Symptoms: Denies: Frequency, Hesitancy - Vitals Vitals: Last Vital Signs Temp 36.4 C L 09/15/17 06:46 Pulse 79 09/15/17 06:46 Resp 18 09/15/17 06:46 BP 138/62 09/15/17 06:46 Pulse Ox 100 09/15/17 06:46 - Abnormal Lab Findings Abnormal Lab Findings: Abnormal Lab Results 09/15/17 09/15/17 Range/Units 05:25 05:25 WBC 18.3 H (4.0-10.5) K/mm3 RBC 3.91 L (4.2-5.4) M/mm3 Hgb 11.2 L (12.5-16.0) gm/dL Hct 34.0 L (37.0-47.0) % MPV 10.4 H (6.0-9.5) fl Neutrophils % (Manual) 90 H (42-75) % Lymphocytes % (Manual) 7 L (20-51) % Neutrophils # (Manual) 16.5 H (1.3-6.0) K/mm3 Lymphocytes # (Manual) 1.3 L (1.5-3.5) k/mm3 BUN 57 H (3-23) mg/dL Creatinine 1.43 H (0.4-1.4) mg/dL Est GFR (Non-Af Amer) 38 L (60-130) mL/min BUN/Creatinine Ratio 39.9 H (9.0-21.6) Random Glucose 341 H (70-110) mg/dL - Exam Constitutional: Present: Alert, Oriented x3, Cooperative ENT Exam: Present: hearing grossly normal Neck: Present: supple Respiratory: Present: decreased breath sounds, crackles, rhonchi Abdomen: Present: Normal bowel sounds, soft, nontender, nondistended Extremity: Present: no pedal edema, no calf tenderness Assessment/Plan - Problems/Diagnosis (1) Leukocytosis Problem: Acute Qualifiers: Leukocytosis type: bandemia Qualified Code(s): D72.825 - Bandemia Narrative: contiues to creep up. due to steroids/infection. bands down. received only 1 dose of Cefepime yesterday. (2) Pneumonia Problem: Acute Qualifiers: Pneumonia type: due to unspecified organism Laterality: bilateral Narrative: await official reading of CXR. unofficially- prominent hilar lymphnodes, right, increased vascular markings. (3) CHF (congestive heart failure) Problem: Chronic Qualifiers: Congestive heart failure type: unspecified congestive heart failure type Congestive heart failure chronicity: acute on chronic Qualified Code(s): I50.9 - Heart failure, unspecified Narrative: continue with diuretics (4) Acute bronchitis Problem: Acute Narrative: continue with IV Soulmedrol/breathing treatments and mucomyst. (5) Pulmonary hypertension Problem: Acute (6) Hypertension Problem: Chronic Qualifiers: Hypertension type: essential hypertension Qualified Code(s): I10 - Essential (primary) hypertension (7) HLD (hyperlipidemia) Problem: Chronic (8) CAD (coronary artery disease) Problem: Chronic (9) Pacemaker Problem: Chronic (10) Diabetes mellitus type 2 in nonobese Problem: Acute
[2017-09-15] MEDS ORDERED: CEFEPIME HCL 1 GM in DEXTROSE 5 % IN WATER 100 ML IV SCH ×2 (07:45)
[2017-09-15] MEDS ORDERED: INSULIN GLARGINE,HUM.REC.ANLOG 100 UNITS/ML VIAL SC SCH (07:52)
[2017-09-15] MEDS: CEFEPIME HCL 1 GM in NORMAL SALINE 100 ML IV SCH (07:55)
[2017-09-15] MEDS ORDERED: CEFEPIME HCL 1 GM in NORMAL SALINE 100 ML IV SCH (08:00)
[2017-09-15] MEDS: CARVEDILOL 25 MG TABLET PO SCH ×2 (08:02→20:46)
[2017-09-15] MEDS: ASPIRIN 81 MG TAB.CHEW PO SCH (08:02)
[2017-09-15] MEDS: LOSARTAN POTASSIUM 50 MG TABLET PO SCH (08:02)
[2017-09-15] MEDS: DABIGATRAN ETEXILATE MESYLATE 150 MG CAPSULE PO SCH ×2 (08:03→20:45)
[2017-09-15] MEDS: ISOSORBIDE DINITRATE 10 MG TABLET PO SCH ×2 (08:03→20:45)
[2017-09-15] MEDS: FUROSEMIDE 10 MG/ML VIAL IV SCH ×2 (08:03→20:46)
[2017-09-15] MEDS: CALCIUM CARBONATE 500 MG TAB.CHEW PO SCH (08:03)
[2017-09-15] MEDS: POTASSIUM CHLORIDE 10 MEQ TABLET.SA PO SCH ×2 (08:03→16:55)
[2017-09-15] MEDS: ALLOPURINOL 100 MG TABLET PO SCH ×2 (08:04→20:46)
[2017-09-15] MEDS ORDERED: NORMAL SALINE IV SCH (08:15)
[2017-09-15] MEDS ORDERED: CEFEPIME HCL IV SCH (08:15)
[2017-09-15] MEDS ORDERED: CEFEPIME HCL IV ONE (08:30)
[2017-09-15] MEDS ORDERED: NORMAL SALINE IV ONE (08:30)
[2017-09-15] MEDS: METHYLPREDNISOLONE SOD SUCC 40 MG in WATER FOR INJ.,BACTERIOSTATIC 0 ML IV SCH ×3 (10:14→22:24)
[2017-09-15] MEDS: AZITHROMYCIN 250 MG TABLET PO SCH (14:23)
[2017-09-15] MEDS: ROSUVASTATIN CALCIUM 10 MG TABLET PO SCH (20:45)
[2017-09-15] MEDS: HYDROcodone/CHLORPHEN P-STIREX 5 ML UDC PO PRN (22:26)
[2017-09-16] MEDS: METHYLPREDNISOLONE SOD SUCC 40 MG in WATER FOR INJ.,BACTERIOSTATIC 0 ML IV SCH (04:41)
[2017-09-16 06:05] LABS: Hematocrit 35.8 % (37.0-47.0); Hemoglobin 11.7 gm/dL (12.5-16.0); Mean Cell Volume 86.1 fl (78-100); Mean Corpuscular Hemoglobin 28.1 pg (27-31); Mean Corpuscular Hgb Conc 32.7 g/dl (32-36); Neutrophil # 14.8 K/mm3 (1.3-6.0); Neutrophil % 86.7 % (42-75.0); Platelet Count 252 K/mm3 (150-450); Red Blood Count 4.16 M/mm3 (4.2-5.4); Red Cell Distribution Width 13.8 % (11.5-14.0); White Blood Count 17.1 K/mm3 (4.0-10.5)
[2017-09-16] MEDS: ALBUTEROL SULFATE/IPRATROPIUM 3 ML NEBU IH SCH (06:08)
[2017-09-16] MEDS: ACETYLCYSTEINE 100 MG/ML VIAL IH SCH (06:10)
[2017-09-16 06:24] LABS: Anion Gap 12.2 mmol/L (6.8-13.8); Calcium * 7.9 mg/dL (7.9-10.9); Carbon Dioxide 27.8 mmol/L (24-32.6); Estimated Creat Clear 32.7
[2017-09-16] MEDS: INSULIN LISPRO 100 UNITS/ML VIAL SC SCH (06:50)
--- NOTE | 2017-09-16 07:46 | DS ---
(1) Leukocytosis Diagnosis(s): steroid induced on top of her pneumonia. clinicallt better. Problem: Acute Qualifiers: Leukocytosis type: unspecified Qualified Code(s): D72.829 - Elevated white blood cell count, unspecified (2) Pneumonia Problem: Acute Qualifiers: Pneumonia type: due to unspecified organism Laterality: bilateral (3) CHF (congestive heart failure) Problem: Chronic Qualifiers: Congestive heart failure type: unspecified congestive heart failure type Congestive heart failure chronicity: acute on chronic Qualified Code(s): I50.9 - Heart failure, unspecified (4) Acute bronchitis Problem: Acute (5) Pulmonary hypertension Problem: Acute (6) Hypertension Problem: Chronic Qualifiers: Hypertension type: essential hypertension Qualified Code(s): I10 - Essential (primary) hypertension (7) HLD (hyperlipidemia) Problem: Chronic (8) CAD (coronary artery disease) Problem: Chronic (9) Pacemaker Problem: Chronic (10) Diabetes mellitus type 2 in nonobese Problem: Acute Description of Stay: Prachi Johns is a 77 year old white female with PMH of CAD s/p CABG, Myocardial Infarction, Congestive Heart Failure, Dual chamber Pacemaker Placement for AVB/ SSS, Hypertension, Hyperlipidimia, TIA, who was admitted on 09/11/2017 for shortness of breath and cough. Five days [employer], she started having upper respiratory signs and symptoms . She was having nasal congestion, cough productive of yellowish phlegm, mixed with specks of blood and epistaxis. She also started having SOB and some wheezing. She went to our ER were CXR showed pulmonary congestion and was given lasix and doxycycline for acute nasopharyngitis. Her SOB and cough did not improve and she became more orthopneic and so she went back to the ER . She was then admitted for Acute exacerbation of congestive heart failure. We also started her on Rocephin and Azithromycin , breathing treatments and IV solumedrol for acute bronchitis. Her CXR did not show pneumonia except for cardiomegaly and pulmonary congestion. Her Echo showed EF of 50-55 with diastolic dysfunction and moderate to severe PHTN. A CTA was done and P.E. was ruled out but it also showed multilobar opacites consistent with infection. She was treated for pneumonia and IV diuretics. She is clinically better but her lungs remain crackly. Her BNP is down to 1370. Her WBC is still elevated but likely due more to steroids as there are no bands. She is stable to be discharged today. She is saturating in the 95-100 on RA. Procedures Performed: none Discharge Disposition: Home self care Disposition: Home self-care Condition: Fair Discharge Activity: Activity as tolerated Discharge Diet: Consistent carbs, Low salt Referrals: Alonso Anna MD [Primary Care Provider] - Problem Oriented Discharge Instructions to Patient/Family: Pneumonitis Additional Patient Instructions (free text): Follow up with on 09-21-17 @ 11:00am. Prescriptions (Any new or edited meds): Albuterol Sulfate [Proair Hfa] 2 puff IH QID PRN #1 inhaler PRN Reason: Shortness Of Breath/Wheezing Albuterol Sulfate/Ipratropium [Duoneb 2.5-0.5MG/3ML Soln] 3 ml IH QID #2 nebu Furosemide [Lasix] 80 mg PO DAILY #30 tablet HYDROcodone/CHLORPHEN P-STIREX [Tussionex Pennkinetic Suspension] 5 ml PO Q12H PRN #60 ml PRN Reason: Cough Levofloxacin [Levaquin] 750 mg PO DAILY #5 tablet predniSONE [Prednisone] 10 mg PO DAILY 5 Days #5 tab Complete Home Medications List: Complete Home Medication List: Aspirin [Aspirin Chewable] 81 mg PO DAILY 01/15/13 Calcium Carbonate/Vitamin D3 [Caltrate 600 Plus D3 Tablet] 2 each PO DAILY 01/15 Carvedilol [Coreg] 25 mg PO BID 01/15/13 Insulin Glargine,Hum.rec.anlog [Lantus] 68 unit SQ HS 01/15/13 Isosorbide Dinitrate 20 mg PO BID 01/15/13 [place]-3 Fatty Acids/Fish Oil [Fish Oil 1,200 mg Softgel] 1 each PO DAILY Pravastatin Sodium [Pravachol] 80 mg PO HS 01/15/13 Allopurinol [Zyloprim] 100 mg PO BID 09/09/17 Dabigatran Etexilate Mesylate [Pradaxa] 150 mg PO BID 09/09/17 Losartan Potassium [Cozaar] 25 mg PO DAILY 09/09/17 Multivitamin [Multivitamins] 1 each PO DAILY 09/09/17 Potassium Chloride [Klor-Con 10] 10 meq PO DAILY #20 tablet.er 09/09/17 Insulin Lispro [Humalog] 20 units SQ AC 09/11/17 Albuterol Sulfate [Proair Hfa] 2 puff IH QID PRN #1 inhaler 09/16/17 Albuterol Sulfate/Ipratropium [Duoneb 2.5-0.5MG/3ML Soln] 3 ml IH QID #2 nebu Furosemide [Lasix] 80 mg PO DAILY #30 tablet 09/16/17 HYDROcodone/CHLORPHEN P-STIREX [Tussionex Pennkinetic Suspension] 5 ml PO Q12H PRN #60 ml 09/16/17 Levofloxacin [Levaquin] 750 mg PO DAILY #5 tablet 09/16/17 predniSONE [Prednisone] 10 mg PO DAILY 5 Days #5 tab 09/16/17
[2017-09-16] MEDS: CALCIUM CARBONATE 500 MG TAB.CHEW PO SCH (08:18)
[2017-09-16] MEDS: DABIGATRAN ETEXILATE MESYLATE 150 MG CAPSULE PO SCH (08:19)
[2017-09-16] MEDS: ASPIRIN 81 MG TAB.CHEW PO SCH (08:19)
[2017-09-16] MEDS: ISOSORBIDE DINITRATE 10 MG TABLET PO SCH (08:20)
[2017-09-16] MEDS: CARVEDILOL 25 MG TABLET PO SCH (08:22)
[2017-09-16] MEDS: POTASSIUM CHLORIDE 10 MEQ TABLET.SA PO SCH (08:23)
[2017-09-16] MEDS: LOSARTAN POTASSIUM 50 MG TABLET PO SCH (08:25)
[2017-09-16] MEDS: ALLOPURINOL 100 MG TABLET PO SCH (08:25)
[2017-09-16] MEDS: CEFEPIME HCL 1 GM in NORMAL SALINE 100 ML IV SCH (08:31)
[2017-09-16] MEDS: FUROSEMIDE 10 MG/ML VIAL IV SCH (08:32)
[2017-09-16 10:34] VITALS: BP 133/64
== END 2017-09-16 10:52 | disposition home or self-care (01) | DRG 291 ==
LOC: ER 08:05 → INTOOBSV 10:11 → MS 10:11 → INTOOBSV 09-12 09:08 → OBSVTOIN 09-12 09:08
PROVIDERS: ADMIT Internal Medicine; ATTEND Internal Medicine
PROC: 4A033R1 Measurement of Arterial Saturation, Peripheral, Percutaneous Approach (ICD-10-PCS; principal; 2017-09-11)
PROC: B246ZZZ Ultrasonography of Right and Left Heart (ICD-10-PCS; 2017-09-11)
DX: I50.43 Acute on chronic combined systolic (congestive) and diastolic (congestive) heart failure (principal); J18.9 Pneumonia, unspecified organism; J00 Acute nasopharyngitis [common cold]; I27.20 Pulmonary hypertension, unspecified; D72.825 Bandemia; J20.9 Acute bronchitis, unspecified; I10 Essential (primary) hypertension; E11.9 Type 2 diabetes mellitus without complications; E78.5 Hyperlipidemia, unspecified; I25.10 Atherosclerotic heart disease of native coronary artery without angina pectoris; Z95.1 Presence of aortocoronary bypass graft; Z95.0 Presence of cardiac pacemaker; Z79.82 Long term (current) use of aspirin; Z85.41 Personal history of malignant neoplasm of cervix uteri; Z85.828 Personal history of other malignant neoplasm of skin
CPT/HCPCS: 36415; 36600; 71020; 71275; 80048; 80053; 82803; 83735; 83880; 84484; 85007; 85025; 87040; 87081; 87400; 87430; 93005; 93306; 94640; 99284; 99285; G0378